=== PATIENT | female | born 2005 | race Two or more races ===

== ENCOUNTER 2024-10-30 09:38 | Outpatient (REF) | payer MEDICAID, SELFPAY ==
--- OUTSIDE RECORDS SUMMARY | 2024-10-30 10:26 | XMS_ITS | Continuity of Care Document ---
Author Organization [facility] Address [address] [place] [address] Phone Care Team Providers Care Highway Commissioner Name Role Phone Unavailable Unavailable Unavailable Advance Directives Directive Yes / No Effective Date File Name No Information Encounters Encounter Description Practice Location Reason(s) For Visit Diagnoses Date Provider Providers Copied on Encounter [facility], [address], [place], [place], [id number], tel:[phone] [facility] No Information 0 No Information Referring Provider: SHEILA Mccarty, [address], [place], [address]. tel:[phone] Family History Family Member Type Diagnosis Age At Onset Problem (finding) No family history of Alcazar dden Problem (finding) No family history of Ar rhythmia Problem (finding) No family hist ory of Congenital Heart Disease Payers Payer name Insurance type Covered constitution party ID Authoriza tion(s) [place]/DIRECT HMO [facility] [id number] Social History Type Description Quantity Date Captured Comments Sex Female Smoking Status No Information Chief Complaint And Reason For Visit No Information History Of Present Illness Encounter Date Complaint History Of Prese nt Illness No Information Instructions Date Instruction Additional Infor mation No Information Assessments Type Assessment Date No Information
--- OUTSIDE RECORDS SUMMARY | 2024-10-30 10:26 | XMS_ITS | Continuity of Care Document ---
Author Organization [facility] Address [address] [place] [address] Phone Care Team Providers Care Double Backer Name Role Phone Sheng Greco NP Unavailable Unavailable Procedures Procedure Date Prophylaxis-Child Topical Application Of Fluoride 019 Comprehensive Oral Eval-New Or Establish ed Patient Intraoral-Complete Series Of Radiographi c Images Prvsnl Crwn-Frthr Txmt/Cmpl Diag Nec Ibis or Fnl Imp Post&Core In Addtn To Crwn, Indirectly F abricated Advance Directives Directive Yes / No Effective Date File Name No Information Encounters Encounter Description Practice Location Reason(s) For Visit Diagnoses Date Provider Providers Copied on Encounter [facility], [address] [place], [address], tel:[phone] [facility] No Information 0 Fannie Patricio. [address], [place], [place], [id number], [place]. tel:[phone] [facility], [address] [place], [address], tel:[phone] [facility] No Information 9 No Information [facility], [address] [place], [address], tel:[phone] [facility] No Information 0 9 No Information [facility], [address] [place], [place], [address], tel:[phone] [facility] No Information 201 9 No Information Family History Family Member Type Diagnosis Age At Onset No Information Payers Payer name Insurance type Covered democrat ID Manas pereira(s) [employer] [id number] Social History Type Description Quantity Date Captured Comments Sex Female Smoking Status No Information Sexual Orientation Choose not to disclose Gender Identity Choose not to disclose 019 Chief Complaint And Reason For Visit No Information Reason For Referral Reason For Referral No Information History Of Present Illness Encounter Date Complaint History Of Prese nt Illness No Information Functional Status Date Functional Assessmen t No Information Instructions Date Instruction Additional Infor mation No Information Assessments Type Assessment Date No Information Patient Care Teams Name Effective Dates (start - stop) Status Members No Information
--- OUTSIDE RECORDS SUMMARY | 2024-10-30 10:26 | XMS_ITS | Clinical Summary ---
Author Organization [employer] Address [address] [facility] [address] [place] [address] Care Team Providers Care Senior Buyer Name Role Phone Unavailable Primary Care Provider Unavailabl e Allergies No known active allergies Medications * This document contains information received from the source organization and may not represent a complete record from that organization. levonorgestrel-e thinyl estradiol (Nordette) 0.15-30 MG-MCG tabletIndication s:Encounter for control pills maintenance Take 1 tablet by mouth Once per day. 28 tablet 2 4 04/18/20 25 Active simethicone (Mylicon) 125 MG chewable tabletIndication s:Bloating symptom Chew 1 tablet (125 mg) every 8 (eight) hours if needed for flatulence for up to 10 days. 30 tablet 5 11/10/19 25 Active Active Problems Problem Noted Date Diagnosed Date Encounter for control pills maintenance Assessment & Plan (04/18/2024 1:45 PM EDT): Counseling done I reviewed with patient side effects (including blood clots, DVT, PE, stroke...) Recent test at home negative Rib pain 04/18/2024 Assessment & Plan (04/18/2024 1:44 PM EDT): Counseling done, patient has good breathing Ibuprofen PRN for pain Anxiety 04/18/2024 Assessment & Plan (04/18/2024 1:44 PM EDT): Counseling done [facility] referral Encounters Date Type Department Care Team Description 10/30/2024 9:00 AM EDT Office Visit [facility] [address] [place] [address] Bloating symptom (Primary Dx) from Last 3 Months Social History Tobacco Use Types Packs/Day Years Used Date Smoking Tobacco: Never Passive Smoke Exposure: Never Smokeless Tobacco: Never Comments Unknown Sex and Gender Information Value Date Recorded Sex Assigned at Female 04/18/2024 10:20 AM EDT Legal Sex Female 10:17 AM EDT Gender Identity Female 04/18/2024 10:20 AM EDT Sexual Orientation Straight 04/18/2024 10 :20 AM EDT Last Filed Vital Signs Vital Sign Reading Time Taken Comments Blood Pressure 119/79 10/30/2024 9:02 AM EDT Pulse 81 10/30/2024 9:02 AM EDT Temperature 36.6 ??C (97.9 ??F) 10/30/2024 9:02 AM ED T Respiratory Rate 16 10/30/2024 9:02 AM EDT Oxygen Saturation 100% 10/30/2024 9:02 AM EDT Inhaled Oxygen Concentration - - Weight 97.5 kg (215 lb) 10/30/2024 9:02 AM EDT Height 170 cm (5' 6.93 ) 04/18/2024 1:02 PM EDT Body Mass Index 33.75 04/18/2024 1:02 PM EDT Plan of Treatment Health Maintenance Due Date Last Done Comments Chlamydia and Gonorrhea Screening 2004 Depression Screening 2004 HIV Screening 2004 SDOH Screening 2004 Alcohol/Substance Use Screening 2016 Family Planning (PISQ) 02/23/2019 HPV Vaccines (1 - 3-dose series) 02/23/2019 Hepatitis C Screening 02/23/2022 DTaP/Tdap/Td Vaccines (1 - Tdap) 02/23/2023 Hepatitis B Vaccines (1 of 3 - 19+ 3-dose series) 02/23/2023 COVID-19 Vaccine ( - 2023-2 5 season) 2024 Influenza Vaccine (#1) 2024 Tobacco Screening 04/18/2025 04/18/2024 Zoster Vaccines (1 of 2) 02/23/2054 RSV Patients and Pa tients Aged 60 years or older (1 - 1-dose 75+ series) 02/23/2079 HIB Vaccines Aged Out No longer eligi ble based on patient's age to complete this topic Hepatitis A Vaccines Aged Out No long er eligible based on patient's age to complete this topic IPV Vaccines Aged Out No longer eligi ble based on patient's age to complete this topic Meningococcal Vaccine Aged Out No stefan [place] eligible based on patient's age to complete this topic Pneumococcal Vaccine: Pediat rics (0 to 5 Years) and At-Risk Patients (6 to 49) Years) Aged Out No longer elig ible based on patient's age to complete this topic RSV under 20 months Aged Out No longe r eligible based on patient's age to complete this topic Rotavirus Vaccines Aged Out No longer eligible based on patient's age to complete this topic Procedures Procedure Name Priority Date/Time Associated Diagnosis Comments POCT , URINE Routine 10/30/2024 9:47 AM EDT Bloating symptom POCT URINALYSIS DIPSTICK Routine 10/30/2024 9:46 AM EDT Bloating symptom from Last 3 Months Results * POCT , urine manually resulted (10/30/2024 9:47 AM EDT) Preg Test, Ur Negative Negative, Indeterminate, None Detected, Invalid, Specimen unsatisfactory for evaluation, Weakly Positive, 2+ Urine 10/30/2024 9:47 AM EDT us Nathen Chun MD POINT OF CARE TEST ENTER/EDIT OR DERABLES Final Result * POCT urinalysis dipstick manually resulted (10/30/2024 9:46 AM EDT) Color, UA Yellow Clarity, UA Clear Glucose, UA Negative Bilirubin, UA Negative Ketones, UA Negative Spec Grav, UA 1.030 Blood, UA Negative Negative, None Detected pH, UA 5.5 Protein, UA Negative Urobilinogen, UA 0.2 Leukocytes, UA Negative Negative, Rare, Trace Nitrite, UA Negative Negative, None Detected Appearance, UA Ok Urine 10/30/2024 9:46 AM EDT us Nathen Chun MD POINT OF CARE TEST ENTER/EDIT OR DERABLES Final Result from Last 3 Months Insurance [facility] LIMITED HS FULL
--- OUTSIDE RECORDS SUMMARY | 2024-10-30 10:26 | XMS_ITS | Encounter Summary ---
Author Organization [employer] Address [address] [facility] [address] [place] [address] Care Team Providers Care Clinical Business Manager Name Role Phone Unavailable Primary Care Provider Unavailabl e Reason for Visit * Reason Comments Med Refill Encounter Details Date Type Department Care Team (Late st Contact Info) Description 07/04/2024 Refill [facility] [address] [place], [place] [phone] Ginger Whitehead MD [address] [place], [place] [phone] Encounter for control pills maintenance Social History Tobacco Use Types Packs/Day Years Used Date Smoking Tobacco: Never Passive Smoke Exposure: Never Smokeless Tobacco: Never Comments Unknown Sex and Gender Information Value Date Recorded Sex Assigned at Female 04/18/2024 10:20 AM EDT Legal Sex Female 10:17 AM EDT Gender Identity Female 04/18/2024 10:20 AM EDT Sexual Orientation Straight 04/18/2024 10 :20 AM EDT documented as of this encounter Plan of Treatment Not on file documented as of this encounter Visit Diagnoses Diagnosis Encounter for control pills maintenance Surveillance of previously prescribed contraceptive pill documented in this encounter
--- OUTSIDE RECORDS SUMMARY | 2024-10-30 10:26 | XMS_ITS | Encounter Summary ---
Author Organization [employer] Address [address] [facility] [address] [place] [address] Care Team Providers Care Perfect Binder Operator Name Role Phone Unavailable Primary Care Provider Unavailabl e Reason for Visit * Reason Comments Gas Encounter Details Date Type Department Care Team ([facility] st Contact Info) Description 10/30/2024 9:00 AM EDT Office Visit [facility] [address] [place], [place] [phone] Bloating symptom (Primary Dx) Social History Tobacco Use Types Packs/Day Years Used Date Smoking Tobacco: Never Passive Smoke Exposure: Never Smokeless Tobacco: Never Comments Unknown Sex and Gender Information Value Date Recorded Sex Assigned at Female 04/18/2024 10:20 AM EDT Legal Sex Female 10:17 AM EDT Gender Identity Female 04/18/2024 10:20 AM EDT Sexual Orientation Straight 04/18/2024 10 :20 AM EDT documented as of this encounter Last Filed Vital Signs Vital Sign Reading Time Taken Comments Blood Pressure 119/79 10/30/2024 9:02 AM EDT Pulse 81 10/30/2024 9:02 AM EDT Temperature 36.6 ??C (97.9 ??F) 10/30/2024 9:02 AM ED T Respiratory Rate 16 10/30/2024 9:02 AM EDT Oxygen Saturation 100% 10/30/2024 9:02 AM EDT Inhaled Oxygen Concentration - - Weight 97.5 kg (215 lb) 10/30/2024 9:02 AM EDT Height - - Body Mass Index 33.75 04/18/2024 1:02 PM EDT documented in this encounter Plan of Treatment Scheduled Orders Name Type Priority Associated Diagnoses Orde r Schedule Comprehensive Metabolic Panel Lab Routine Bloating symptom Expected: 10/30/2024 (Approximate), Expires: 10/30/2025 CBC auto differential Lab Routine Bloating symptom Expected: 10/30/2024 (Approximate), Expires: 10/30/2025 Amylase Lab Routine Bloating symptom Expected: 10/30/2024 (Approximate), Expires: 10/30/2025 Lipase Lab Routine Bloating symptom Expected: 10/30/2024, Expires: 10/30/2025 documented as of this encounter Procedures Procedure Name Priority Date/Time Associated Diagnosis Comments POCT , URINE Routine 10/30/2024 9:47 AM EDT Bloating symptom POCT URINALYSIS DIPSTICK Routine 10/30/2024 9:46 AM EDT Bloating symptom documented in this encounter Results * POCT , urine manually resulted [...] CARE TEST ENTER/EDIT OR DERABLES Final Result documented in this encounter Visit Diagnoses Diagnosis Bloating symptom- Primary Flatulence, eructation, and gas pain documented in this encounter
[2024-10-30 11:09] LABS: MANUAL DIFF FLAG NO
[2024-10-30 11:13] LABS: Basophils Percent Auto 0.3 % (0-2); Eosinophils Absolute Auto 0.2 X10*3/uL (0.0-0.4); Eosinophils Percent Auto 2.3 % (0-4); Hemoglobin 14.3 g/dl (12.0-16.0); Imm Gran Abs Auto 0.02 X10*3/uL (0.00-0.03); Imm Gran Pct Auto 0.2 % (0.0-0.4); Lymphocytes Absolute Auto 4.2 X10*3/uL (1.2-4.9); Lymphocytes Percent Auto 48.5 % (20-40); Mean Corpuscular Hemoglobin 28.9 pg (27.0-33.0); Monocytes Absolute Auto 0.5 X10*3/uL (0.1-1.2); Monocytes Percent Auto 6.2 % (2-11); Neutrophils Absolute Auto 3.7 x10*3/uL (2.0-8.3); Neutrophils Percent Auto 42.5 % (45-73); Platelet Count 268 X10*3/uL (160-400); Red Blood Count 4.94 X10*6/uL (4.20-5.50); White Blood Count 8.6 X10*3/uL (4.8-10.8)
[2024-10-30 11:40] LABS: Alanine Aminotransferase 31 U/L (0-31); Albumin Level 4.7 g/dL (3.5-5.0); Alkaline Phosphatase 73 U/L (39-117); Amylase 50 U/L (28-100); Anion Gap 14 (12-20); Aspartate Amino Transferase 20 U/L (5-31); Bilirubin Total 0.3 mg/dL (0.0-1.0); Blood Urea Nitrogen 10 mg/dL (9-16); Carbon Dioxide 24 mmol/L (22-29); Chloride 106 mmol/L (96-108); Estimated Glomerular Filt Rate > 60; Glucose Random 92 mg/dL (60-115); Lipase 23 U/L (8-78); Potassium 3.9 mmol/L (3.3-5.1); Sodium 140 mmol/L (135-145); Total Protein 8.4 g/dL (6.5-8.0)
== END 2024-10-30 09:39 | disposition home or self-care (01) ==
LOC: HO.HHCL 09:38
PROVIDERS: Visit Provider Family Medicine
DX: R14.0 Abdominal distension (gaseous) (principal)
CPT/HCPCS: 36415; 80053; 82150; 83690; 85025